=== PATIENT | male | born 1945 | race Caucasian/White ===

== ENCOUNTER → 2018-12-25 | Outpatient (REF) | payer MEDICARE ==
[~2018-12-25] MED LIST: ADLT ASA LOW81 MG PO; CIALIS2.5 MG; CIALIS2.5 MG PO; COREG25 MG PO; COREG6.25 MG PO; CRESTOR5 MG; FISH OIL1000 MG PO; FISH OIL1200 M1 PO; FLEXERIL5 M1 PO; FLUZONE SPLT1 M1 IM; KEFLEX250 MG PO; MULTIVITAMI1 PO; NAPROSYN500 MG PO; NEXIUM20 M1; NEXIUM40 M1 PO; PERCOCET 5/325M1 TAB PO; PRAVASTATIN80 MG PO; TRAMADOL HCL50 MG PO; ZESTRIL40 MG PO; ZOSTAVAX IM
[2018-12-25 10:25] LABS: HEMATOCRIT 48.9 % (39.0-50.0)
[2018-12-25 10:26] LABS: HEMOGLOBIN 15.9 g/dl (14.0-18.0)
== END | disposition home or self-care (01) ==
LOC: LAB 10:03
PROVIDERS: ATTEND Obstetrics & Gynecology
DX: E29.1 Testicular hypofunction (principal); E34.9 Endocrine disorder, unspecified; R39.11 Hesitancy of micturition; R53.83 Other fatigue; R68.82 Decreased libido

== ENCOUNTER 2020-06-02 07:30 | Day surgery (SDC) | payer MEDICARE ==
[~2020-06-02 07:30] MED LIST changes: +CLONIDINE HCL0.1 MG PO; +HM IRON65 MG PO; +LISINOPRIL20 MG PO; +NORVASC5 M1 PO; +SIMVASTATIN20 MG PO; +[UNRECOGNIZED DRUG - REMARK] PO
[2020-06-02 11:19] VITALS: BP 134/80
== END 2020-06-02 11:18 | disposition home or self-care (01) ==
LOC: ENDO 07:30 → ORM 08:45 → ENDO 11:18
PROVIDERS: ATTEND Surgery
PROC: 0DBF8ZX Excision of Right Large Intestine, Via Natural or Artificial Opening Endoscopic, Diagnostic (ICD-10-PCS; principal; 2020-06-02)
PROC: 0DBL8ZX Excision of Transverse Colon, Via Natural or Artificial Opening Endoscopic, Diagnostic (ICD-10-PCS; 2020-06-02)
PROC: 0DBN8ZX Excision of Sigmoid Colon, Via Natural or Artificial Opening Endoscopic, Diagnostic (ICD-10-PCS; 2020-06-02)
PROC: 0DB48ZX Excision of Esophagogastric Junction, Via Natural or Artificial Opening Endoscopic, Diagnostic (ICD-10-PCS; 2020-06-02)
DX: Z12.11 Encounter for screening for malignant neoplasm of colon (principal); D12.2 Benign neoplasm of ascending colon; D12.5 Benign neoplasm of sigmoid colon; D12.3 Benign neoplasm of transverse colon; K57.30 Diverticulosis of large intestine without perforation or abscess without bleeding; K64.8 Other hemorrhoids; K21.0 Gastro-esophageal reflux disease with esophagitis; K22.70 Barrett's esophagus without dysplasia; K44.9 Diaphragmatic hernia without obstruction or gangrene; I10 Essential (primary) hypertension; Z87.19 Personal history of other diseases of the digestive system; Z11.59 Encounter for screening for other viral diseases

== ENCOUNTER 2020-11-13 11:27 | Day surgery (SDC) | payer MEDICARE ==
[~2020-11-13] VITALS: Ht 177.8 cm; Wt 90.7 kg
[~2020-11-13 11:27] MED LIST changes: -NEXIUM40 M1 PO; +OMEPRAZOLE10 MG PO
[2020-11-13 14:20] VITALS: BP 126/74
== END 2020-11-13 14:38 | disposition home or self-care (01) ==
LOC: ORM 11:27
PROVIDERS: ATTEND Urology
PROC: 0VB03ZX Excision of Prostate, Percutaneous Approach, Diagnostic (ICD-10-PCS; principal; 2020-11-13)
PROC: BV49ZZZ Ultrasonography of Prostate and Seminal Vesicles (ICD-10-PCS; 2020-11-13)
DX: C61 Malignant neoplasm of prostate (principal); N40.1 Benign prostatic hyperplasia with lower urinary tract symptoms; R39.12 Poor urinary stream; N13.8 Other obstructive and reflux uropathy; E29.1 Testicular hypofunction; I10 Essential (primary) hypertension; E78.5 Hyperlipidemia, unspecified; Z79.890 Hormone replacement therapy; Z20.822 Contact with and (suspected) exposure to COVID-19

== ENCOUNTER 2022-05-08 16:41 | Emergency (ER) | payer MEDICARE ==
[~2022-05-08] VITALS: Ht 177.8 cm; Wt 90.9 kg
[2022-05-08 18:03] VITALS: BP 136/76
== END 2022-05-08 18:13 | disposition home or self-care (01) ==
LOC: ED 16:41
DX: U07.1 COVID-19 (principal); R05.9 Cough, unspecified; R52 Pain, unspecified; I10 Essential (primary) hypertension

== ENCOUNTER 2023-05-25 08:47 | Day surgery (SDC) | payer MEDICARE ==
[~2023-05-25] VITALS: Ht 177.8 cm; Wt 87.5 kg
[~2023-05-25 08:47] MED LIST changes: +AMLODIPINE BES2.5 MG PO; +BAYER ASPIRIN E81 MG PO; +LOSARTAN POTASS50 MG PO; +OMEPRAZOLE DR40 MG PO; +TAMSULOSIN HCL0.4 MG PO; +VIAGRA50 MG PO
[2023-05-25 10:46] VITALS: BP 150/87
== END 2023-05-25 10:57 | disposition home or self-care (01) ==
LOC: ORM 08:47
PROVIDERS: ATTEND Surgery
PROC: 0DBH8ZX Excision of Cecum, Via Natural or Artificial Opening Endoscopic, Diagnostic (ICD-10-PCS; principal; 2023-05-25)
PROC: 0DBL8ZX Excision of Transverse Colon, Via Natural or Artificial Opening Endoscopic, Diagnostic (ICD-10-PCS; 2023-05-25)
PROC: 0DBN8ZX Excision of Sigmoid Colon, Via Natural or Artificial Opening Endoscopic, Diagnostic (ICD-10-PCS; 2023-05-25)
PROC: 0DBM8ZX Excision of Descending Colon, Via Natural or Artificial Opening Endoscopic, Diagnostic (ICD-10-PCS; 2023-05-25)
DX: Z12.11 Encounter for screening for malignant neoplasm of colon (principal); D12.3 Benign neoplasm of transverse colon; D12.0 Benign neoplasm of cecum; D12.5 Benign neoplasm of sigmoid colon; K63.5 Polyp of colon; K57.30 Diverticulosis of large intestine without perforation or abscess without bleeding; K64.8 Other hemorrhoids; I10 Essential (primary) hypertension; Z86.010 Personal history of colon polyps

== ENCOUNTER 2023-11-10 19:33 | Emergency (ER) | payer MEDICARE ==
[~2023-11-10] VITALS: Ht 177.8 cm; Wt 90.9 kg
[2023-11-10] VITALS (16 sets, daily range): BP systolic 126–163; BP diastolic 65–85
[2023-11-10 20:23] LABS: BASO% 0.5 % (0-3); EOS% 2.2 % (0-8); HEMATOCRIT 37.6 % (39.0-50.0); HEMOGLOBIN 11.4 g/dl (14.0-18.0); IMMATURE GRANULOCYTES 0.4 % (0.0-5.0); LYMPH% 18.3 % (15-41); MEAN CELL VOLUME 77.8 fL CALC (80.0-100.0); MEAN CORPUSCULAR HGB 23.6 pG CALC (26.0-32.0); MEAN CORPUSCULAR HGB CONC 30.3 g/dL CAL (32.0-36.0); MONO% 8.4 % (2-13); NEUT# 5.97 thou/uL (1.82-7.42); NEUT% 70.2 % (42-76); RED BLOOD COUNT 4.83 mill/uL (4.70-6.10); RED CELL DISTRI WIDTH 15.3 % (11.5-15.5)
[2023-11-10 20:33] LABS: ALBUMIN 4.2 g/dL (3.2-5.0); ALKALINE PHOSPHATASE 65 u/l (38-126); ANION GAP 12 (6-22 (CALC)); BILIRUBIN, TOTAL 0.5 mg/dL (0.2-1.3); BUN 24 mg/dL (8-23); BUN/CREATININE RATIO 17 (12-20 (CALC)); CARBON DIOXIDE 20 mmol/l (22-30); CHLORIDE 110 mmol/l (95-108); CREATININE 1.4 mg/dL (0.7-1.3); GFR FOR AFR.AMER. 60 ML/MIN (>=60 (CALC)); GFR OTHER RACES 49 ML/MIN (>=60 (CALC)); POTASSIUM 4.3 mmol/l (3.5-5.1); SGOT/AST 27 u/l (19-48); SODIUM 138 mmol/l (137-146); TOTAL PROTEIN 6.3 g/dL (6.3-8.2)
[2023-11-10 22:37] LABS: URINE BILIRUBIN - DIPSTICK Negative (NEGATIVE); URINE BLOOD DIPSTICK Negative (NEGATIVE); URINE GLUCOSE - DIPSTICK Negative (NEGATIVE); URINE KETONE Negative (NEGATIVE); URINE LEUK ESTERASE Negative (NEGATIVE); URINE NITRITE - DIPSTICK Negative (Negative); URINE PROTEIN - DIPSTICK 30 mg/dL (NEG-TRACE); URINE UROBILINOGEN - DIPSTICK 0.2 E.U./dL (0.2)
[2023-11-10 22:38] LABS: URINE COLOR Yellow
[2023-11-10 22:53] LABS: URINE SQUAMOUS EPITHELIAL CELL RARE EPI/hpf (0-FEW)
== END 2023-11-10 23:14 | disposition home or self-care (01) ==
LOC: ED 19:33
PROVIDERS: Family Medicine
DX: E86.0 Dehydration (principal); I10 Essential (primary) hypertension

== ENCOUNTER 2023-11-19 12:20 | Emergency (ER) | payer MEDICARE ==
[~2023-11-19] VITALS: Ht 177.8 cm; Wt 90.7 kg
[2023-11-19] VITALS (20 sets, daily range): BP systolic 117–156; BP diastolic 61–90
[2023-11-19] MEDS ORDERED: LORTAB 5/3255 MG PO (12:34)
[2023-11-19] MEDS ORDERED: MAGNESIUM CITRATE 296 ML/BTL PO ONE (15:35)
== END 2023-11-19 17:55 | disposition home or self-care (01) ==
LOC: ED 12:20
DX: K59.00 Constipation, unspecified (principal); I10 Essential (primary) hypertension; Z98.890 Other specified postprocedural states